=== PATIENT | male | born 1945 | race Caucasian/White ===

== ENCOUNTER 2016-04-06 13:25 | Inpatient (IN) ==
--- NOTE | 2016-04-06 13:34 | Emergency Department Note ---
Disposition Clinical Impression: ESRD (end stage renal disease), DM (diabetes mellitus), type 2, Hyperkalemia, Weakness, Anemia Disposition: Admitted As Inpatient Condition: Fair [facility] Care Provider[facility] - Forms: Work/School Release, ED Satisfaction Letter Time of Disposition: 15:11 General Adult HPI - General Chief complaint: ED General Medical Stated complaint: "Not feeling well" Elevated BP, Elevated K+ Time Seen by Provider: 04/06/16 13:32 Source: patient, EMS Mode of arrival: EMS Limitations: physical limitation Nursing Notes Reviewed: Yes Vital Signs Reviewed: Yes - History of Present Illness HPI Narrative: This is a 70-year-old male who came over from the [place] and states he just does not feel well. Patient has a generalized headache. Patient states he just feels weak and fatigued. Patient did not go to dialysis this morning due to feeling well. Patient denies any chest pain or shortness of breath. Patient denies any abdominal pain, vomiting, diarrhea, or measured fever. 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 - Related Data Home Medications Medication Instructions Recorded Confirmed CloNIDine HCl [Clonidine HCl] 0.1 mg PO TID 12/03/15 04/06/16 GlipiZIDE [Glipizide] 10 mg PO BID 12/03/15 04/06/16 SUMAtriptan Succinate [Imitrex] 100 mg PO DAILY PRN 12/11/15 04/06/16 Amlodipine Besylate 10 mg PO DAILY 03/11/16 04/06/16 Carboxymethylcellulose Sodium 1 drop BOTH EYES QID 03/11/16 04/06/16 [Refresh Celluvisc] Diazepam [Valium] 10 mg PO BID PRN 03/11/16 04/06/16 Folic Acid/Vit Bcomp,C [Renal-Claudette 0.8 mg PO DAILY 03/11/16 04/06/16 Tablet] Furosemide [Lasix] 40 mg PO BID 03/11/16 04/06/16 Gabapentin [Neurontin] 100 mg PO HS 03/11/16 04/06/16 Insulin NPH, HUMAN [HumuLIN N] 60 unit SQ QAM 03/11/16 04/06/16 Donepezil [Aricept] 10 mg PO HS 03/12/16 04/06/16 Gabapentin [Neurontin] 200 mg PO BID 03/12/16 04/06/16 Insulin NPH, HUMAN [HumuLIN N] 45 unit SQ QPM 03/12/16 04/06/16 Pregabalin [Lyrica] 150 mg PO BID 03/12/16 04/06/16 Simvastatin [Zocor] 20 mg PO DAILY 03/12/16 04/06/16 Previous Rx's Medication Instructions Recorded Aspirin 81 mg PO DAILY #30 tab.chew 03/13/16 Metoprolol [Lopressor] 100 mg PO BID #60 tablet 03/13/16 Renal Vitamin [Renal Caps Softgel] 1 mg PO DAILY capsule 03/13/16 Allergies Allergy/AdvReac Type Severity Reaction Status Date / Time gabapentin Allergy Rash Verified 04/06/16 13:34 simvastatin Allergy See Verified 04/06/16 13:34 Comments fentanyl AdvReac Vomiting Verified 04/06/16 13:34 hydrocortisone AdvReac Redness of Verified 04/06/16 13:34 Skin morphine AdvReac Vomiting Verified 04/06/16 13:34 All systems ED: reviewed and negative except as stated. Constitutional: Reports: weakness. Denies: fever, chills, weight change Eyes: Denies: eye pain, eye discharge, vision change ENT ED: Denies: ear pain, throat pain, dental pain, hearing loss, epistaxis, congestion, dysphagia Cardiovascular: Denies: chest pain, palpitations, dyspnea on exertion, edema, syncope Respiratory: Denies: cough, dyspnea, wheezes, hemoptysis, stridor Gastrointestinal: Denies: abdominal pain, nausea, vomiting, diarrhea, constipation, hematemesis, melena, hematochezia Genitourinary: Denies: urgency, dysuria, frequency, hematuria Musculoskeletal: Denies: back pain, neck pain, arthralgia, myalgia Integumentary: Denies: rash, abrasion, lesions Neurological: Reports: headache. Denies: numbness, paresthesias, confusion, abnormal gait, vertigo Psychiatric: Denies: anxiety, depression, suicidal thoughts, homicidal thoughts , auditory hallucinations, visual hallucinations Endocrine: Reports: fatigue Hematological/Lymphatic: Denies: easy bleeding, easy bruising Allergic/Immunologic: Denies: facial swelling, urticaria Past Medical History - Past Medical History Attestation: Yes The following information was validated with the patient. Source: patient Medical history: Reports: CHF, diabetes, dialysis, hypertension Surgical history: Reports: appendectomy, other Psychiatric history: Reports: PTSD - Social History Smoking Status: Never smoker Smokeless Tobacco Status: No Alcohol use: Reports: rarely Drug use: Reports: none Physical Exam - General Limitations: physical limitation General appearance: alert, in no apparent distress - Head Head exam: atraumatic, normocephalic, normal inspection - Eye Eye exam: Present: normal appearance, PERRL, EOMI - ENT ENT exam: normal exam, normal oropharynx, mucous membranes moist - Expanded ENT Exam External ear exam: Present: normal external inspection Mouth exam: Present: normal external inspection Teeth exam: Present: normal inspection Throat exam: Present: normal inspection - Neck Neck exam: Present: normal inspection, full ROM, trachea midline - Chest Chest inspection: Present: normal inspection, symmetric chest wall rise - Respiratory Respiratory exam: Present: other (rhonchi) - Cardiovascular Cardiovascular exam: Present: tachycardia, irregular rhythm, normal heart sounds - Abdominal Exam Abdominal exam: Present: soft, Non-Tender. Absent: tenderness, distention, guarding, rebound, rigidity - Extremities Exam Extremities exam: Present: full ROM. Absent: tenderness, pedal edema - Expanded Upper Extremity Exam Shoulder exam: Present: normal inspection, full ROM Arm exam: Present: normal inspection, full ROM Elbow exam: Present: normal inspection, full ROM Forearm/Wrist exam: Present: normal inspection, full ROM Hand exam: Present: normal inspection, full ROM Vascular exam: Normal: capillary refill, radial pulse - Expanded Lower Extremity Exam Hip/Pelvis exam: Present: normal inspection, full ROM Upper leg exam: Present: normal inspection, full ROM Lower leg exam: Present: other (above the knee amputation on the L) Neurovascular/Tendon exam: Absent: motor deficit, sensory deficit, tendon deficit - Back Exam Back exam: Present: normal inspection, full ROM. Absent: tenderness - Neurological Exam Neurological exam: Present: alert, oriented X3 - Expanded Neurological Exam Patient oriented to: Present: person, place, time Speech: Present: fluid speech Coma Scale Eye Opening: Spontaneous Coma Scale Motor Response: Obeys Commands Coma Scale Verbal Response: Oriented Coma Scale Total: 15 - Psychiatric Psychiatric exam: Present: normal affect, normal mood - Skin Skin exam: Present: warm, dry, intact, pallor Course - Consultations Consultation #1: I spoke with Dr. Corbin yu to consult and wants medical management at this time and he will do dialysis in the AM. Time: 15:12 Consultation #2: I spoke with Dr. Martin yu to admit. Time: 15:50 Vital Signs Temperature 97.8 F 04/06/16 13:28 Pulse Rate 117 04/06/16 13:28 Respiratory Rate 18 04/06/16 13:28 Blood Pressure 210/133 04/06/16 13:28 O2 Sat by Pulse Oximetry 89 L 04/06/16 13:28 Temperature 97.8 F 04/06/16 13:28 Pulse Rate 118 04/06/16 14:59 Respiratory Rate 18 04/06/16 15:47 Blood Pressure 212/100 04/06/16 14:59 O2 Sat by Pulse Oximetry 95 04/06/16 15:47 Oxygen Delivery Oxygen Delivery Nasal Cannula Medical Decision Making - Medical Records Medical records reviewed: Yes I reviewed the patient's medical records. - Lab Data Lab results reviewed: Yes I reviewed the patient's lab results. Result diagrams: 04/06/16 14:08 04/06/16 14:08 Lab Results 04/06/16 04/06/16 04/06/16 Range/Units 14:08 14:08 14:08 WBC 8.5 (4.3-11.1) K/mcL RBC 3.08 L (4.19-5.50) M/mcL Hgb 9.4 L (12.9-16.9) g/dL Hct 29.0 L (37.5-50.1) % MCV 94.2 (83.0-100.0) fL MCH 30.5 (28.0-33.3) pg MCHC 32.4 (31.6-35.5) g/dL RDW 13.0 (11.5-14.5) % Plt Count 272 (140-400) K/mcL MPV 9.9 (9.4-12.4) fL Immature Gran % 0.4 (0-4) % Seg Neutrophils % 68.3 % Lymphocytes % 21.9 % Monocytes % 7.5 % Eosinophils % 1.5 % Basophils % 0.4 % Neutrophils # 5.8 (1.6-8.9) K/mcL Lymphocytes # 1.9 (0.6-4.6) K/mcL Monocytes # 0.6 (0.0-1.3) K/mcL Eosinophils # 0.1 (0.0-0.6) K/mcL Basophils # 0.0 (0.0-0.2) K/mcL PT (9.4-12.1) Seconds INR APTT 35.4 (26.0-36.0) Seconds Sodium 138 (136-145) mEq/L Potassium 6.7 H* (3.5-4.5) mEq/L Chloride 99 (98-109) mEq/L Carbon Dioxide 19 (19-29) mEq/L BUN 95 H (8-26) mg/dL Creatinine 11.79 H (0.72-1.25) mg/dL Est GFR ( Amer) 5 L (> 60) Est GFR (Non-Af Amer) 4 L (> 60) BUN/Creatinine Ratio 8 (6-26) Glucose 80 (70-99) mg/dL Calculated Osmolality 314 H (280-300) Calcium 9.0 (8.6-10.8) mg/dL Total Bilirubin (0.2-1.2) mg/dL Direct Bilirubin (0.0-0.5) mg/dL Indirect Bilirubin (0.0-1.2) mg/dL AST (5-34) Units/L ALT (0-55) Units/L Alkaline Phosphatase (38-126) Units/L Troponin I (0-0.03) ng/mL B-Natriuretic Peptide (0-100) pg/mL Serum Total Protein (6.0-8.3) g/dL Albumin (3.5-5.0) g/dL Globulin (2.4-3.5) g/dL Albumin/Globulin Ratio (1.1-2.2) TSH (0.350-4.840) mcIU/mL 04/06/16 04/06/16 04/06/16 Range/Units 14:08 14:08 14:08 WBC (4.3-11.1) K/mcL RBC (4.19-5.50) M/mcL Hgb (12.9-16.9) g/dL Hct (37.5-50.1) % MCV (83.0-100.0) fL MCH (28.0-33.3) pg MCHC (31.6-35.5) g/dL RDW (11.5-14.5) % Plt Count (140-400) K/mcL MPV (9.4-12.4) fL Immature Gran % (0-4) % Seg Neutrophils % % Lymphocytes % % Monocytes % % Eosinophils % % Basophils % % Neutrophils # (1.6-8.9) K/mcL Lymphocytes # (0.6-4.6) K/mcL Monocytes # (0.0-1.3) K/mcL Eosinophils # (0.0-0.6) K/mcL Basophils # (0.0-0.2) K/mcL PT 13.8 H (9.4-12.1) Seconds INR 1.3 APTT (26.0-36.0) Seconds Sodium (136-145) mEq/L Potassium (3.5-4.5) mEq/L Chloride (98-109) mEq/L Carbon Dioxide (19-29) mEq/L BUN (8-26) mg/dL Creatinine (0.72-1.25) mg/dL Est GFR ( Amer) (> 60) Est GFR (Non-Af Amer) (> 60) BUN/Creatinine Ratio (6-26) Glucose (70-99) mg/dL Calculated Osmolality (280-300) Calcium (8.6-10.8) mg/dL Total Bilirubin 0.4 (0.2-1.2) mg/dL Direct Bilirubin 0.2 (0.0-0.5) mg/dL Indirect Bilirubin 0.2 (0.0-1.2) mg/dL AST 18 (5-34) Units/L ALT 12 (0-55) Units/L Alkaline Phosphatase 111 (38-126) Units/L Troponin I (0-0.03) ng/mL B-Natriuretic Peptide 827 H (0-100) pg/mL Serum Total Protein 6.9 (6.0-8.3) g/dL Albumin 2.4 L (3.5-5.0) g/dL Globulin 4.5 H (2.4-3.5) g/dL Albumin/Globulin Ratio 0.5 L (1.1-2.2) TSH 3.119 (0.350-4.840) mcIU/mL 04/06/16 Range/Units 14:08 WBC (4.3-11.1) K/mcL RBC (4.19-5.50) M/mcL Hgb (12.9-16.9) g/dL Hct (37.5-50.1) % MCV (83.0-100.0) fL MCH (28.0-33.3) pg MCHC (31.6-35.5) g/dL RDW (11.5-14.5) % Plt Count (140-400) K/mcL MPV (9.4-12.4) fL Immature Gran % (0-4) % Seg Neutrophils % % Lymphocytes % % Monocytes % % Eosinophils % % Basophils % % Neutrophils # (1.6-8.9) K/mcL Lymphocytes # (0.6-4.6) K/mcL Monocytes # (0.0-1.3) K/mcL Eosinophils # (0.0-0.6) K/mcL Basophils # (0.0-0.2) K/mcL PT (9.4-12.1) Seconds INR APTT (26.0-36.0) Seconds Sodium (136-145) mEq/L Potassium (3.5-4.5) mEq/L Chloride (98-109) mEq/L Carbon Dioxide (19-29) mEq/L BUN (8-26) mg/dL Creatinine (0.72-1.25) mg/dL Est GFR ( Amer) (> 60) Est GFR (Non-Af Amer) (> 60) BUN/Creatinine Ratio (6-26) Glucose (70-99) mg/dL Calculated Osmolality (280-300) Calcium (8.6-10.8) mg/dL Total Bilirubin (0.2-1.2) mg/dL Direct Bilirubin (0.0-0.5) mg/dL Indirect Bilirubin (0.0-1.2) mg/dL AST (5-34) Units/L ALT (0-55) Units/L Alkaline Phosphatase (38-126) Units/L Troponin I 0.05 H* (0-0.03) ng/mL B-Natriuretic Peptide (0-100) pg/mL Serum Total Protein (6.0-8.3) g/dL Albumin (3.5-5.0) g/dL Globulin (2.4-3.5) g/dL Albumin/Globulin Ratio (1.1-2.2) TSH (0.350-4.840) mcIU/mL - Radiology Data Radiology results reviewed: Yes I reviewed the patient's radiology results. - EKG Data EKG #1 EKG attestation: Yes I reviewed and interpreted this EKG. Rate: tachycardia (102) Rhythm: A.Fib [place]/QRS: normal When compared to previous EKG there are: no significant changes Interpretation: nonspecific ST-T wave changes
[2016-04-06 14:18] LABS: Basophils % 0.4 %; Eosinophils # 0.1 K/mcL (0.0-0.6); Eosinophils % 1.5 %; Hemoglobin 9.4 g/dL (12.9-16.9); Immature Granulocytes % 0.4 % (0-4); Lymphocytes # 1.9 K/mcL (0.6-4.6); Lymphocytes % 21.9 %; Mean Corpuscular HGB Conc 32.4 g/dL (31.6-35.5); Mean Corpuscular Hemoglobin 30.5 pg (28.0-33.3); Mean Corpuscular Volume 94.2 fL (83.0-100.0); Mean Platelet Volume 9.9 fL (9.4-12.4); Monocytes # 0.6 K/mcL (0.0-1.3); Monocytes % 7.5 %; Neutrophils # 5.8 K/mcL (1.6-8.9); Platelet Count 272 K/mcL (140-400); Red Blood Count 3.08 M/mcL (4.19-5.50); Segmented Neutrophils % 68.3 %
[2016-04-06 14:23] LABS: INR 1.3; Prothrombin Time 13.8 Seconds (9.4-12.1)
[2016-04-06 14:39] LABS: Albumin 2.4 g/dL (3.5-5.0); Albumin/Globulin Ratio 0.5 (1.1-2.2); Bilirubin,Direct 0.2 mg/dL (0.0-0.5); Bilirubin,Indirect 0.2 mg/dL (0.0-1.2); Bilirubin,Total 0.4 mg/dL (0.2-1.2); Globulin 4.5 g/dL (2.4-3.5); Total Protein 6.9 g/dL (6.0-8.3)
[2016-04-06 14:49] LABS: Potassium 6.7 mEq/L (3.5-4.5)
[2016-04-06 14:59] LABS: Thyroid Stimulating Hormone 3.119 mcIU/mL (0.350-4.840)
[2016-04-06] MEDS ORDERED: Insulin Human Regular 10 UNIT in 0.9 % Sodium Chloride 10 ML IV ONE (15:07)
[2016-04-06] MEDS ORDERED: Albuterol 2.5 MG/3 ML NEBULIZER IH ONE (15:07)
[2016-04-06] MEDS ORDERED: Sodium Bicarbonate 50 MEQ/50 ML VIAL IVP ONE (15:07)
[2016-04-06] MEDS ORDERED: Calcium Gluconate 1,000 MG in D5% in Water 100 ML IVPB ONE (15:07)
[2016-04-06] MEDS ORDERED: *HR* Dextrose 50 % in Water (Syg) 50 ML SYRINGE IVP ONE (15:09)
[2016-04-06] MEDS ORDERED: Lidocaine -MPF 1% 5 ML AMPUL INFILT ONE (15:57)
[2016-04-06] MEDS ORDERED: cloNIDine HCl 0.1 MG TABLET PO ONE (17:39)
[2016-04-06] MEDS ORDERED: Metoprolol 100 MG TABLET PO STA (17:39)
[2016-04-06] MEDS ORDERED: amLODIPine 5 MG TABLET PO STA (17:40)
[2016-04-06] MEDS ORDERED: Naloxone 0.4 MG/ML INJ IVP PRN (18:18)
[2016-04-06] MEDS ORDERED: Dextrose Gel 15 GM PO PRN ×2 (18:22)
[2016-04-06] MEDS ORDERED: D5% in Water 1,000 ML IV PRN (18:22)
[2016-04-06] MEDS ORDERED: *HR* Dextrose 50 % in Water (Syg) 50 ML SYRINGE IVP PRN (18:22)
--- NOTE | 2016-04-06 18:33 | Internal Med History&Physical ---
Date of Encounter: 04/06/16 Time of Encounter: 18:30 Assessment and Plan (1) Hyperkalemia Current visit: Yes Status: Acute -Likely secondary to missed HD session -patient received a dose of Kayxelate, Calcium gluconate, Insulin in the ER -Will monitor K level -HD in am -Hold lasix at this time (2) ESRD (end stage renal disease) Current visit: Yes Status: Acute -Patient is a known patient of Dr. Alaniz (consulted by the ER physician) -patient on HD MWF -Will get dialyzed in am -Dr. Alaniz aware of the patient (3) Uncontrolled hypertension Current visit: No Status: Acute -pt reports of not taking his BP meds today -will restart his home medications and closely monitor -added Hydralazine 10mg IV q6h PRN SBP>160 (4) Atrial fibrillation Current visit: Yes Status: Chronic -rate controlled at home with Metoprolol -Will restart home medications -continue to closely monitor -patient not a candidate for anticoagulation due to chronic illness and history of falls -Aspirin for anticoagulation as per primary fur feeder Qualifiers: Atrial fibrillation type: chronic Qualified Code(s): I48.2 - Chronic atrial fibrillation (5) DM (diabetes mellitus), type 2 Current visit: Yes Status: Chronic continue home insulin dosing hold oral antihyperglycemic agents at this time continue to monitor fingerstick and blood glucose started low dose sliding scale correctional insulin algorithm as needed Qualifiers: Diabetes mellitus complication status: with unspecified complications Diabetes mellitus terminal worker insulin use: with terminal worker use Qualified Code(s) : E11.8 - Type 2 diabetes mellitus with unspecified complications; Z79.4 - 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 (current) use of insulin (6) DVT prophylaxis Current visit: No Status: Acute heparin SQ (7) Elevated troponin Current visit: No Status: Acute No reported chest pain likely demand ischemia will trend serial tni (8) CHF (congestive heart failure) Current visit: No Status: Chronic not in acute exacerbation will continue home medications Qualifiers: Congestive heart failure type: unspecified congestive heart failure type Congestive heart failure chronicity: chronic Qualified Code(s): I50.9 - Heart failure, unspecified (9) Cancer of skin of left forearm Current visit: No Status: Chronic patient recently underwent skin grafting on his distal left hand and is due for a follow up in am will obtain wound care consult further management as outpatient with his primary international sales representative (10) Chronic anemia Current visit: No Status: Chronic (11) Morbid obesity with BMI of 40.0-44.9, adult Current visit: Yes Status: Chronic Internal Medicine - H&P: HPI Chief complaint: generalized weakness Admitted From: Home Plans for Post Hospital Care: Home History of present illness: Mr. Callejas is a 70 year old male with past medical history of end-stage renal disease on hemodialysis, diabetes, hypertension, atrial fibrillation, skin malignancy presents to the ER for evaluation of generalized weakness. Patient states he woke up feeling extremely weak and was unable to make it to his hemodialysis appointment due to the severe weakness and decided to come to the ER instead. He was a transfer from the [facility] to the ER for evaluation of generalized weakness, headache, and hyperkalemia. He was noted to be severely hypertensive and reported of not taking his home antihypertensive medications. In the ER he received kayexalate, calcium gluconate, and insulin therapy. At this time he is resting in bed with present at bedside. He states his headache has resolved, denies any chest pain, shortness of breath, palpitations , abdominal pain, nausea, vomiting, fever, or chills. ER contacted patient's primary admitting counselor Dr. Alaniz, patient will get dialyzed in the morning. Past Med Surg Social Fam HX - Past Medical History Medical history: CHF, diabetes, dialysis, hypertension Psychiatric history: PTSD - Past Surgical History Surgical History: appendectomy, other - Social History Smoking Status: Never smoker Smokeless Tobacco Status: No Alcohol use: rarely Drug use: none - Family History Mother Living Status: Father Living Status: Internal Medicine - H&P: Meds CloNIDine HCl [Clonidine HCl] 0.1 mg PO TID 12/03/15 [History] GlipiZIDE [Glipizide] 10 mg PO BID 12/03/15 [History] SUMAtriptan Succinate [Imitrex] 100 mg PO DAILY PRN 12/11/15 [History] Amlodipine Besylate 10 mg PO DAILY 03/11/16 [History] Carboxymethylcellulose Sodium [Refresh Celluvisc] 1 drop BOTH EYES QID 03/11/16 [History] Diazepam [Valium] 10 mg PO BID PRN 03/11/16 [History] Folic Acid/Vit Bcomp,C [Renal-Claudette Tablet] 0.8 mg PO DAILY 03/11/16 [History] Furosemide [Lasix] 40 mg PO BID 03/11/16 [History] Gabapentin [Neurontin] 100 mg PO HS 03/11/16 [History] Insulin NPH, HUMAN [HumuLIN N] 60 unit SQ QAM 03/11/16 [History] Donepezil [Aricept] 10 mg PO HS 03/12/16 [History] Gabapentin [Neurontin] 200 mg PO BID 03/12/16 [History] Insulin NPH, HUMAN [HumuLIN N] 45 unit SQ QPM 03/12/16 [History] Pregabalin [Lyrica] 150 mg PO BID 03/12/16 [History] Simvastatin [Zocor] 20 mg PO DAILY 03/12/16 [History] Aspirin 81 mg PO DAILY #30 tab.chew 03/13/16 [Rx] Metoprolol [Lopressor] 100 mg PO BID #60 tablet 03/13/16 [Rx] Renal Vitamin [Renal Caps Softgel] 1 mg PO DAILY capsule 03/13/16 [Rx] Allergies gabapentin Allergy (Verified 04/06/16 13:34) Rash simvastatin Allergy (Verified 04/06/16 13:34) See Comments patient states unsure, [facility] fentanyl Adverse Reaction (Verified 04/06/16 13:34) Vomiting hydrocortisone Adverse Reaction (Verified 04/06/16 13:34) Redness of Skin morphine Adverse Reaction (Verified 04/06/16 13:34) Vomiting All Systems PM: A 10-system review of systems was performed and is negative for pertinent findings except as documented above in the HPI. - Constitutional Constitutional: as per HPI - Constitutional Vitals: Temp Pulse Resp BP Pulse Ox 97.9 F 103 18 209/86 92 L 04/06/16 17:20 04/06/16 17:20 04/06/16 17:20 04/06/16 17:20 04/06/16 17:21 General appearance: Present: A&O X 3, morbidly obese, no acute distress, answers questions appropriately - Head Head exam: Present: atraumatic, normocephalic - Eye Eye exam: Present: normal appearance, conjuntiva pink, sclera anicteric - Respiratory Respiratory exam: Present: CTAB. Absent: respiratory distress, wheezes - Cardiovascular Cardiovascular exam: Present: RRR, +S1, +S2 - GI/Abdominal GI/Abdominal exam: Present: distended (obese), normal bowel sounds, soft. Absent: tenderness - Extremities Exam Extremities exam: Present: pedal edema (s/p left BKA), warm, radial pulses palpable and symetrical. Absent: calf tenderness - Neurological Exam Neurological exam: Present: alert, oriented X3, no focal deficits - Psychiatric Psychiatric exam: Present: normal affect, normal mood Internal Med - H&P Results - Labs CBC & Chem 7: 04/06/16 14:08 04/06/16 14:08
[2016-04-06] MEDS: Pregabalin 75 MG CAPSULE PO SCH (20:41)
[2016-04-06] MEDS: cloNIDine HCl 0.1 MG TABLET PO SCH (20:42)
[2016-04-06] MEDS: Metoprolol 100 MG TABLET PO SCH (20:42)
[2016-04-06] MEDS: Insulin LISPRO 300 UNITS/3 ML VIAL SQ SCH (20:43)
[2016-04-06] MEDS ORDERED: Gabapentin 100 MG CAPSULE PO SCH ×2 (21:00)
[2016-04-06 21:45] LABS: Calcium 8.6 mg/dL (8.6-10.8); Potassium 6.2 mEq/L (3.5-4.5)
[2016-04-07] MEDS: Pregabalin 75 MG CAPSULE PO SCH ×3 (01:31→18:17)
[2016-04-07] MEDS: diazePAM 5 MG TABLET PO PRN (01:32)
[2016-04-07] MEDS: Artificial Tears SOLN 15 ML BOTTLE BOTH EYES SCH ×6 (01:34→22:19)
[2016-04-07 05:13] LABS: Basophils % 0.4 %; Eosinophils # 0.1 K/mcL (0.0-0.6); Eosinophils % 1.3 %; Hematocrit 27.3 % (37.5-50.1); Hemoglobin 9.1 g/dL (12.9-16.9); Immature Granulocytes % 0.4 % (0-4); Lymphocytes # 1.9 K/mcL (0.6-4.6); Lymphocytes % 22.5 %; Mean Corpuscular HGB Conc 33.3 g/dL (31.6-35.5); Mean Corpuscular Hemoglobin 30.7 pg (28.0-33.3); Mean Corpuscular Volume 92.2 fL (83.0-100.0); Mean Platelet Volume 9.7 fL (9.4-12.4); Monocytes # 0.7 K/mcL (0.0-1.3); Monocytes % 7.9 %; Neutrophils # 5.7 K/mcL (1.6-8.9); Platelet Count 264 K/mcL (140-400); Red Blood Count 2.96 M/mcL (4.19-5.50); Segmented Neutrophils % 67.5 %
[2016-04-07 05:40] LABS: Calcium 8.4 mg/dL (8.6-10.8); Magnesium 1.9 mg/dL (1.6-2.6); Phosphorous 14.4 mg/dL (2.3-4.7)
[2016-04-07 05:45] LABS: Potassium 6.7 mEq/L (3.5-4.5)
[2016-04-07] MEDS: *HR* Heparin 5,000 UNIT/ML VIAL SQ SCH ×2 (06:15→17:35)
[2016-04-07] MEDS: Insulin LISPRO 300 UNITS/3 ML VIAL SQ SCH ×4 (07:51→21:34)
[2016-04-07] MEDS: SUMAtriptan succinate 50 MG TABLET PO PRN (07:59)
[2016-04-07] MEDS: cloNIDine HCl 0.1 MG TABLET PO SCH ×3 (08:00→21:37)
[2016-04-07] MEDS: Renal Vitamin 1 MG CAPSULE PO SCH (08:00)
[2016-04-07] MEDS: amLODIPine 5 MG TABLET PO SCH (08:00)
[2016-04-07] MEDS: Metoprolol 100 MG TABLET PO SCH ×2 (08:00→21:37)
[2016-04-07] MEDS: VIT BCOMP C PO SCH (08:00)
[2016-04-07] MEDS: FOLIC ACID PO SCH (08:00)
[2016-04-07] MEDS: Aspirin 81 MG TAB.CHEW PO SCH (08:00)
--- NOTE | 2016-04-07 08:08 | Nephrology Consult Note ---
Date of Encounter: 04/07/16 Time of Encounter: 08:05 Assessment and Plan (1) ESRD (end stage renal disease) Current Visit: Yes Status: Acute Patient has end-stage renal disease related to hypertension and diabetes. He has been noncompliant with dialysis attendance. Subsequently he has significant volume overload and hyperkalemia as well as generalized weakness and hyperphosphatemia. Patient will undergo dialysis today with a 2K bath and aggressive volume removal as tolerated. He will likely require additional ultrafiltration tomorrow. He will be started on his phosphorus binders. His antihypertensive medications have been resumed. Aranesp for his anemia. (2) Volume overload Current Visit: Yes Status: Acute Qualifiers: Hypervolemia type: unspecified Qualified Code(s): E87.70 - Fluid overload, unspecified (3) Hyperkalemia Current Visit: Yes Status: Acute (4) Weakness Current Visit: Yes Status: Acute (5) Hyperphosphatemia Current Visit: No Status: Acute History of Present Illness - History of Present Illness This is a 70-year-old male with end-stage renal disease related to hypertension. Patient receives dialysis every Wednesday and pectin. Patient was admitted to the hospital after presenting to the [place] with complaints of generalized weakness. Patient had only had 1 dialysis treatment in the past week. He is experiencing a lot of swelling in his lower extremities arms as well as genitals. He has not been taking his antihypertensive medications nor his phosphorus binders. Present with hyperkalemia and hyperphosphatemia. Patient denies any shortness of breath or chest pain. His main complaint is that of feeling weak. He says he has been too weak to attend dialysis sessions. Past Med Surg Social Fam HX - Past Medical History Medical history: CHF, diabetes, dialysis, hypertension Psychiatric history: PTSD - Past Surgical History Surgical History: appendectomy, other - Social History Smoking Status: Never smoker Smokeless Tobacco Status: No Alcohol use: rarely Drug use: none - Family History Mother Living Status: Father Living Status: Medications and Allergies CloNIDine HCl [Clonidine HCl] 0.1 mg PO TID 12/03/15 [History] GlipiZIDE [Glipizide] 10 mg PO BID 12/03/15 [History] SUMAtriptan Succinate [Imitrex] 100 mg PO DAILY PRN 12/11/15 [History] Amlodipine Besylate 10 mg PO DAILY 03/11/16 [History] Carboxymethylcellulose Sodium [Refresh Celluvisc] 1 drop BOTH EYES QID 03/11/16 [History] Diazepam [Valium] 10 mg PO BID PRN 03/11/16 [History] Folic Acid/Vit Bcomp,C [Renal-Claudette Tablet] 0.8 mg PO DAILY 03/11/16 [History] Furosemide [Lasix] 40 mg PO BID 03/11/16 [History] Gabapentin [Neurontin] 100 mg PO HS 03/11/16 [History] Insulin NPH, HUMAN [HumuLIN N] 60 unit SQ QAM 03/11/16 [History] Donepezil [Aricept] 10 mg PO HS 03/12/16 [History] Gabapentin [Neurontin] 200 mg PO BID 03/12/16 [History] Insulin NPH, HUMAN [HumuLIN N] 45 unit SQ QPM 03/12/16 [History] Pregabalin [Lyrica] 150 mg PO BID 03/12/16 [History] Simvastatin [Zocor] 20 mg PO DAILY 03/12/16 [History] Aspirin 81 mg PO DAILY #30 tab.chew 03/13/16 [Rx] Metoprolol [Lopressor] 100 mg PO BID #60 tablet 03/13/16 [Rx] Renal Vitamin [Renal Caps Softgel] 1 mg PO DAILY capsule 03/13/16 [Rx] Allergies gabapentin Allergy (Verified 04/06/16 13:34) Rash simvastatin Allergy (Verified 04/06/16 13:34) See Comments patient states unsure, [facility] fentanyl Adverse Reaction (Verified 04/06/16 13:34) Vomiting hydrocortisone Adverse Reaction (Verified 04/06/16 13:34) Redness of Skin morphine Adverse Reaction (Verified 04/06/16 13:34) Vomiting Review of Systems Constitutional: as per HPI, weakness, weight gain Eyes: bilateral: blurred vision (patient denies), diplopia (patient denies) Nose, mouth and throat: no dizziness, no headache(s) Cardiovascular: dyspnea on exertion, leg edema, orthopnea, pedal edema, no chest pain, no palpitations Respiratory: dyspnea on exertion, no cough, no dyspnea Gastrointestinal: no abdominal pain, no change in bowel habits Genitourinary Male: as per HPI Musculoskeletal: muscle weakness, no numbness Integumentary: changing lesions, skin pain Neurological: as per HPI, weakness Psychiatric: no depression, no difficulty concentrating Endocrine: as per HPI Hematologic/Lymphatic: no easy bruising, no lymphadenopathy Exam - Vital Signs Vital signs: Initial Vital Signs Temp Pulse Resp BP Pulse Ox 97.8 F 117 18 210/133 89 L 04/06/16 13:28 04/06/16 13:28 04/06/16 13:28 04/06/16 13:28 04/06/16 13:28 Vital Signs - Last 8 Hours Temp Pulse Resp BP Pulse Ox 04/07/16 07:48 97.8 F 96 18 196/20 93 L 04/07/16 06:05 98 F 95 20 178/102 94 L 04/07/16 05:01 97.7 F 94 18 189/103 94 L 04/07/16 03:33 98.2 F 96 18 201/108 92 L 04/07/16 02:16 98.2 F 100 18 185/115 92 L 04/07/16 01:25 98 F 98 18 188/116 95 04/07/16 00:26 97.6 F 102 18 180/96 96 Intake and Output 04/06/16 04/07/16 04/07/16 23:59 07:59 15:59 Intake Total 120.1 / 120.1 800 / 800 Output Total 0 / 0 100 / 100 Balance 120.1 / 120.1 700 / 700 Intake: IV Fluids 120.1 / 120.1 HumuLIN R 10 UNIT In 10.1 / 10.1 Normal Saline Flush 10 ML @ 1212 mls/hr IV ONCE ONE Rx#:[id number] Calcium Gluconate 1,000 110 / 110 MG In Dextrose 5% 100 ML @ 220 mls/hr IVPB ONCE ONE Rx#:[id number] Oral 0 / 0 800 / 800 Output: Urine 0 / 0 100 / 100 Other: Stool Size Copious Stool Consistency liquid Stool Color Brown # Bowel Movements 4 Weight 135.8 kg Blood Glucose* 130 98 - General Appearance Exam: Patient is alert and oriented. He is in no acute distress. Neck is supple. Carotids show no bruits. Lungs diminished breath sounds bilaterally. Heart regular rate and rhythm with a 2/6 systolic ejection murmur. Abdomen shows normal bowel sounds bruits masses, megaly or tenderness. Patient is status post left below-knee amputation. There is significant swelling of both lower extremities. There is scrotal edema. There is a functioning AV fistula in the left arm. Results - Lab Results 04/07/16 05:00 04/07/16 05:00 Most recent lab results Calcium 8.4 mg/dL (8.6-10.8) L 04/07/16 05:00 Phosphorus 14.4 mg/dL (2.3-4.7) H 04/07/16 05:00 Magnesium 1.9 mg/dL (1.6-2.6) 04/07/16 05:00 Consult Discharge Plan - Plan [facility]errals: [facility] [Primary Care Provider] -
[2016-04-07] MEDS ORDERED: 0.9 % Sodium Chloride 250 ML IV PRN (08:10)
[2016-04-07] MEDS ORDERED: Insulin NPH 100 UNIT/ML (x5UNIT) SQ SCH ×2 (09:00→18:00)
--- NOTE | 2016-04-07 10:01 | Internal Med Progress Note ---
<YousufLisa - Last Filed: 04/07/16 13:36> Date of Encounter: 04/07/16 Time of Encounter: 08:45 - Assessment and plan (1) Hyperkalemia Current Visit: Yes Status: Acute Assessment and plan: Likely secondary to missed HD session Received dose of Kayxelate, Calcim gluconate, and Insulin in ED Potassium 6.7 today Nephrology consulted Pt will have HD today Lasix held Continue to monitor (2) ESRD (end stage renal disease) Current Visit: Yes Status: Acute Assessment and plan: Known pt of Dr. Alaniz HD today, will continue to follow nephrology recommendations (3) Uncontrolled hypertension Current Visit: No Status: Acute Assessment and plan: Reports of noncompliance prior to admission to [facility] Will restart home medications Hydralazine 10mg IV Q6H prn systolic BP >160 (4) Atrial fibrillation Current Visit: Yes Status: Chronic Assessment and plan: Rate controlled with metoprolol Continue home medications Patient not a candidate for anticoagulation due to chronic illness and history of falls Aspirin for anticoagulation as per primary mastercam programmer Qualifiers: Atrial fibrillation type: chronic Qualified Code(s): I48.2 - Chronic atrial fibrillation (5) DM (diabetes mellitus), type 2 Current Visit: Yes Status: Chronic Assessment and plan: Continue home insulin dosing Hold oral antihyperglycemic agents for hospital stay Continue to monitor Start Low dose SSI as needed Qualifiers: Diabetes mellitus complication status: with unspecified complications Diabetes mellitus correction insulin use: with watermaster use Qualified Code(s) : E11.8 - Type 2 diabetes mellitus with unspecified complications; Z79.4 - extermination inspector (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) use of insulin (6) Elevated troponin Current Visit: No Status: Acute Assessment and plan: Pt denies having chest pain Troponins 0.05, 0.05, 0.05 (7) CHF (congestive heart failure) Current Visit: No Status: Chronic Assessment and plan: Continue home medications Qualifiers: Congestive heart failure type: unspecified congestive heart failure type Congestive heart failure chronicity: chronic Qualified Code(s): I50.9 - Heart failure, unspecified (8) Cancer of skin of left forearm Current Visit: No Status: Chronic Assessment and plan: Recent skin grafting of distal left hand Due for follow-up in am, wound care consult ordered Further management outpatient with primary journeyman power plant operator (9) Chronic anemia Current Visit: No Status: Chronic (10) Morbid obesity with BMI of 40.0-44.9, adult Current Visit: Yes Status: Chronic (11) DVT prophylaxis Current Visit: No Status: Acute - Subjective Interval history: Reports he is feeling the same as he was when admitted. He reports continuing to feel weak. He denies any chest pain, shortness of breath, abdominal pain, nausea, vomiting, fever, or chills. He was seen by nephrology and is going to have dialysis today. - Constitutional Vitals: Temp Pulse Resp BP Pulse Ox 97.8 F 96 18 176/93 93 L 04/07/16 09:20 04/07/16 07:48 04/07/16 09:20 04/07/16 09:20 04/07/16 07:48 General appearance: Present: A&O X 3, morbidly obese, no acute distress, answers questions appropriately - Head Head exam: Present: atraumatic, normal inspection, normocephalic - Eye Eye exam: Present: PERRL, conjuntiva pink, sclera anicteric - ENT ENT exam: Present: mucous membranes moist - Neck Neck exam general surgery: Present: supple, trachea midline - Respiratory Respiratory exam: Present: CTAB - Cardiovascular Cardiovascular exam: Present: RRR, +S1, +S2 - GI/Abdominal GI/Abdominal exam: Present: distended (obese), normal bowel sounds, soft. Absent: rebound, rigid, tenderness - Extremities Exam Extremities exam: Present: pedal edema (1+ edema in RLE, LLE s/p BKA), warm. Absent: cyanotic - Neurological Exam Neurological exam: Present: alert, CN II-XII intact, oriented X3, no focal deficits - Skin Skin exam: Present: dry, intact Internal Medicine: Result - Labs CBC & Chem 7: 04/07/16 05:00 04/07/16 05:00 Labs: Short CBC 04/07/16 Range/Units 05:00 WBC 8.4 (4.3-11.1) K/mcL Hgb 9.1 L (12.9-16.9) g/dL Hct 27.3 L (37.5-50.1) % Plt Count 264 (140-400) K/mcL Neutrophils # 5.7 (1.6-8.9) K/mcL BMP 04/06/16 04/07/16 21:10 05:00 Sodium 139 139 Potassium 6.2 H 6.7 H* Chloride 100 99 Carbon Dioxide 19 21 BUN 98 H 102 H Creatinine 12.13 H 12.46 H Glucose 124 H 108 H Calcium 8.6 8.4 L Cardiac Enzymes 04/07/16 04/07/16 Range/Units 01:30 05:00 Troponin I 0.05 H* 0.05 H* (0-0.03) ng/mL - ABG Interpretation ABG results: PT/INR, D-dimer PT 13.8 Seconds (9.4-12.1) H 04/06/16 14:08 Consult Discharge Plan - Plan [facility]errals: [facility] [Primary Care Provider] - <Remy Salazar - Last Filed: 04/07/16 19:06> Date of Encounter: 04/07/16 - Time Spent With Patient I examined this patient and my medical decision-making was reviewed with the Resident Physician. I agree with the documented findings, disposition and treatment plan as described except to the extent set forth below. Patient is a distress heart is regular regular rhythm S1-S2 with a 4/6 systolic ejection murmur. Lungs are clear. Abdomen is obese and soft. exam normal male genitalia largely edematous scrotum with no choice and no skin changes noted. Blood culture is positive for Staphylococcus. Plan for staph bacteremia and will start IV vancomycin. Obtain echocardiogram. Follow-up urine culture and sensitivities. The patient requires inpatient hospitalization for IV antibiotics and finalizing the cultures. For past medical history family history social history and review of systems please refer to the original H&P dictated yesterday at this institution. There are no changes and updates. - Constitutional Vitals: Temp Pulse Resp BP Pulse Ox 97.3 F L 106 18 158/91 91 L 04/07/16 16:54 04/07/16 16:54 04/07/16 16:54 04/07/16 16:54 04/07/16 16:54 Internal Medicine: Result - Labs CBC & Chem 7: 04/07/16 05:00 04/07/16 05:00 Labs: Short CBC 04/07/16 Range/Units 05:00 WBC 8.4 (4.3-11.1) K/mcL Hgb 9.1 L (12.9-16.9) g/dL Hct 27.3 L (37.5-50.1) % Plt Count 264 (140-400) K/mcL Neutrophils # 5.7 (1.6-8.9) K/mcL BMP 04/06/16 04/07/16 21:10 05:00 Sodium 139 139 Potassium 6.2 H 6.7 H* Chloride 100 99 Carbon Dioxide 19 21 BUN 98 H 102 H Creatinine 12.13 H 12.46 H Glucose 124 H 108 H Calcium 8.6 8.4 L Cardiac Enzymes 04/07/16 04/07/16 Range/Units 01:30 05:00 Troponin I 0.05 H* 0.05 H* (0-0.03) ng/mL - ABG Interpretation ABG results: PT/INR, D-dimer PT 13.8 Seconds (9.4-12.1) H 04/06/16 14:08
[2016-04-07] MEDS ORDERED: 0.9 % Sodium Chloride 2,000 ML ONE (10:13)
[2016-04-07] MEDS: Insulin NPH 100 UNIT/ML (x5UNIT) SQ SCH (11:08)
[2016-04-07] MEDS: *HR* OxyCODONE/APAP 5/325 TABLET PO PRN ×2 (11:09→22:23)
[2016-04-07 12:48] LABS: Acinetobacter baumannii by PCR Not Detected (Not Detect); Candida albicans by PCR Not Detected (Not Detect); Candida glabrata by PCR Not Detected (Not Detect); Candida krusei by PCR Not Detected (Not Detect); Candida parapsilosis by PCR Not Detected (Not Detect); Candida tropicalis by PCR Not Detected (Not Detect); Enterococcus by PCR Not Detected (Not Detect); Escherichia coli by PCR Not Detected (Not Detect); Klebsiella oxytoca by PCR Not Detected (Not Detect); Klebsiella pneumoniae by PCR Not Detected (Not Detect); Pseudomonas aeruginosa by PCR Not Detected (Not Detect); Serratia marcescens by PCR Not Detected (Not Detect); Staphylococcus aureus by PCR Not Detected (Not Detect); Streptococcus agalactiae(B)PCR Not Detected (Not Detect); Streptococcus by PCR Not Detected (Not Detect); Streptococcus pneumoniae PCR Not Detected (Not Detect); Streptococcus pyogenes (A) PCR Not Detected (Not Detect); mecA Methicillin-Resist Gene Not Detected (Not Detect)
--- NOTE | 2016-04-07 14:39 | Electrocardiograph Report ---
[facility] Test Date: 2016-04-06 Pat Name: Seng Callejas Department: [facility] Room: 2A42 Gender: M Cpr Ambulance Driver: Britany : 1945 Requested By: Alisha Garcia Order Number: [id number] Reading MD: Klaudia Franco Measurements Intervals [place] Rate: 102 P: [place]: 0 QRS: 5 QRSD: 100 T: 40 QT: 340 QTc: 398 Interpretive Statements ATRIAL FIBRILLATION WITH RAPID VENTRICULAR RESPONSE LOW QRS VOLTAGE IN EXTREMITY LEADS [QRS DEFLECTION < 0.5 mV IN LIMB LEADS] PATTERN CONSISTENT WITH PULMONARY DISEASE MINIMAL ST DEPRESSION [0.025+ mV ST DEPRESSION] INTERPRETATION BASED ON A DEFAULT AGE OF 40 YEARS Electronically Signed On 04-07-16 14:27:56 EST by Klaudia Franco
[2016-04-07] MEDS ORDERED: Vancomycin 2,000 MG in D5% in Water 250 ML IVPB ONE (17:00)
[2016-04-07] MEDS: Furosemide 40 MG TABLET PO SCH (17:35)
[2016-04-08] MEDS: diazePAM 5 MG TABLET PO PRN ×2 (00:46→20:15)
[2016-04-08] MEDS: *HR* Heparin 5,000 UNIT/ML VIAL SQ SCH ×2 (04:50→17:33)
[2016-04-08 06:45] LABS: Basophils % 0.3 %; Eosinophils # 0.1 K/mcL (0.0-0.6); Eosinophils % 1.2 %; Hematocrit 26.6 % (37.5-50.1); Hemoglobin 8.7 g/dL (12.9-16.9); Immature Granulocytes % 2.5 % (0-4); Lymphocytes # 1.5 K/mcL (0.6-4.6); Mean Corpuscular HGB Conc 32.7 g/dL (31.6-35.5); Mean Corpuscular Hemoglobin 29.8 pg (28.0-33.3); Mean Corpuscular Volume 91.1 fL (83.0-100.0); Mean Platelet Volume 10.1 fL (9.4-12.4); Monocytes # 0.6 K/mcL (0.0-1.3); Monocytes % 10.4 %; Neutrophils # 3.6 K/mcL (1.6-8.9); Platelet Count 225 K/mcL (140-400); Red Blood Count 2.92 M/mcL (4.19-5.50); Red Cell Distribution Width 13.1 % (11.5-14.5); Segmented Neutrophils % 60.6 %
[2016-04-08 07:01] LABS: Calcium 8.3 mg/dL (8.6-10.8)
[2016-04-08 07:04] LABS: Potassium 5.8 mEq/L (3.5-4.5)
[2016-04-08] MEDS ORDERED: 0.9 % Sodium Chloride 250 ML IV PRN (08:14)
--- NOTE | 2016-04-08 08:14 | Nephrology Progress Note ---
Date of Encounter: 04/08/16 Time of Encounter: 08:12 - Assessment and Plan (1) ESRD (end stage renal disease) Current Visit: Yes Status: Acute The patient will have additional dialysis today for volume removal as well as treatment of hyperkalemia and also for control of azotemia. Orders have been submitted. (2) Volume overload Current Visit: Yes Status: Acute Qualifiers: Hypervolemia type: unspecified Qualified Code(s): E87.70 - Fluid overload, unspecified (3) Hyperkalemia Current Visit: Yes Status: Acute (4) Weakness Current Visit: Yes Status: Acute (5) Hyperphosphatemia Current Visit: No Status: Acute Subjective Interval history: Patient is sleeping. He is somewhat difficult to arouse. The patient's reports that the patient received Valium and a sleeping pill together at about 1 :00 this morning. Patient had dialysis yesterday. He is going to have additional dialysis today. This we done both for volume removal and control of potassium and azotemia. Objective - Vital Signs Vital signs: Vital Signs Temp Pulse Resp BP Pulse Ox 04/08/16 03:51 97.6 F 106 18 156/89 94 L 04/07/16 22:13 91 L 04/07/16 21:30 98.3 F 98 16 164/93 96 Intake and Output 04/07/16 04/08/16 04/08/16 23:59 07:59 15:59 Other: Weight 128.9 kg Blood Glucose* 86 Patient Weight 04/08/16 23:59 Weight 128.9 kg - General Appearance Exam: The patient is sleeping. He awakens and then drifts back off to sleep. Lungs managed breath sounds otherwise clear heart regular rate and rhythm. Abdomen is nontender. Patient is status post left BKA. He has bilateral lower extremity swelling. Scrotal edema is still present although possibly a bit better than yesterday. - Lab 04/08/16 06:33 04/08/16 06:33 Most recent lab results Calcium 8.3 mg/dL (8.6-10.8) L 04/08/16 06:33 Phosphorus 14.4 mg/dL (2.3-4.7) H 04/07/16 05:00 Magnesium 1.9 mg/dL (1.6-2.6) 04/07/16 05:00 Consult Discharge Plan - Plan [facility]errals: [facility] [Primary Care Provider] -
[2016-04-08] MEDS: Insulin LISPRO 300 UNITS/3 ML VIAL SQ SCH ×4 (08:35→21:01)
[2016-04-08] MEDS: Renal Vitamin 1 MG CAPSULE PO SCH (08:58)
[2016-04-08] MEDS: Insulin NPH 100 UNIT/ML (x5UNIT) SQ SCH (08:59)
[2016-04-08] MEDS: Aspirin 81 MG TAB.CHEW PO SCH (08:59)
[2016-04-08] MEDS: Artificial Tears SOLN 15 ML BOTTLE BOTH EYES SCH ×4 (08:59→20:15)
[2016-04-08] MEDS: VIT BCOMP C PO SCH (08:59)
[2016-04-08] MEDS: FOLIC ACID PO SCH (08:59)
[2016-04-08] MEDS: Furosemide 40 MG TABLET PO SCH ×2 (08:59→17:33)
[2016-04-08] MEDS: *HR* OxyCODONE/APAP 5/325 TABLET PO PRN ×2 (09:00→15:15)
[2016-04-08] MEDS: SUMAtriptan succinate 50 MG TABLET PO PRN ×2 (09:01→15:15)
--- NOTE | 2016-04-08 10:42 | Internal Med Progress Note ---
<YousufLisa Snyderll - Last Filed: 04/08/16 15:05> Date of Encounter: 04/08/16 Time of Encounter: 10:00 - Assessment and plan (1) Hyperkalemia Current Visit: Yes Status: Acute Assessment and plan: Likely secondary to missed HD session Received dose of Kayxelate, Calcim gluconate, and Insulin in ED Potassium 5.8 today Pt will have HD again today Lasix held Continue to monitor (2) ESRD (end stage renal disease) Current Visit: Yes Status: Acute Assessment and plan: Known pt of Dr. 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 Qualifiers: Atrial fibrillation type: chronic Qualified Code(s): I48.2 - Chronic atrial fibrillation (5) DM (diabetes mellitus), type 2 Current Visit: Yes Status: Chronic Assessment and plan: Due to episode of hypoglycemia, home dose insulin was decreased by half Currently on low dose SSI Hold oral antihyperglycemic agents for hospital stay Continue to monitor Qualifiers: Diabetes mellitus complication status: with unspecified complications Diabetes mellitus half-way insulin use: with continuous churn buttermaker use Qualified Code(s) : E11.8 - Type 2 diabetes mellitus with unspecified complications; Z79.4 - continuous churn buttermaker (current) use of insulin (6) Elevated troponin Current Visit: No Status: Acute Assessment and plan: Pt denies having chest pain Troponins 0.05, 0.05, 0.05 (7) CHF (congestive heart failure) Current Visit: No Status: Chronic Assessment and plan: Continue home medications Qualifiers: Congestive heart failure type: unspecified congestive heart failure type Congestive heart failure chronicity: chronic Qualified Code(s): I50.9 - Heart failure, unspecified (8) Cancer of skin of left forearm Current Visit: No Status: Chronic Assessment and plan: Recent skin grafting of distal left hand Due for follow-up in am, wound care consult ordered Further management outpatient with primary interpreter (9) Chronic anemia Current Visit: No Status: Chronic (10) Morbid obesity with BMI of 40.0-44.9, adult Current Visit: Yes Status: Chronic (11) DVT prophylaxis Current Visit: No Status: Acute - Subjective Interval history: Pt sleeping this morning. He admits to some tenderness in the abdomen on palpation. He denies any chest pain, shortness of breath, nausea, vomiting, fever, or chills. He will receive dialysis again today. - Constitutional Vitals: Temp Pulse Resp BP Pulse Ox 97.3 F L 91 16 155/99 96 04/08/16 08:19 04/08/16 08:19 04/08/16 08:19 04/08/16 08:19 04/08/16 08:19 General appearance: Present: A&O X 3, morbidly obese, no acute distress, answers questions appropriately - Head Head exam: Present: atraumatic, normal inspection, normocephalic - Eye Eye exam: Present: PERRL, conjuntiva pink, sclera anicteric - ENT ENT exam: Present: mucous membranes moist - Neck Neck exam general surgery: Present: supple, trachea midline - Respiratory Respiratory exam: Present: CTAB. Absent: accessory muscle use - Cardiovascular Cardiovascular exam: Present: RRR, +S1, +S2 - GI/Abdominal GI/Abdominal exam: Present: distended (obese), tenderness (diffusely TTP). Absent: guarding, rebound - Extremities Exam Extremities exam: Present: pedal edema (1+ edema RLE, LLE s/p BKA) - Neurological Exam Neurological exam: Present: alert, CN II-XII intact, oriented X3, no focal deficits - Skin Skin exam: Present: dry, intact Internal Medicine: Result - Labs CBC & Chem 7: 04/08/16 06:33 04/08/16 06:33 Labs: Short CBC 04/08/16 Range/Units 06:33 WBC 6.0 (4.3-11.1) K/mcL Hgb 8.7 L (12.9-16.9) g/dL Hct 26.6 L (37.5-50.1) % Plt Count 225 (140-400) K/mcL Neutrophils # 3.6 (1.6-8.9) K/mcL BMP 04/08/16 06:33 Sodium 141 Potassium 5.8 H Chloride 103 Carbon Dioxide 19 BUN 77 H Creatinine 9.83 H Glucose 58 L Calcium 8.3 L - ABG Interpretation ABG results: PT/INR, D-dimer PT 13.8 Seconds (9.4-12.1) H 04/06/16 14:08 Consult Discharge Plan - Plan [facility]errals: [facility] [Primary Care Provider] - <Remy Salazar - Last Filed: 04/08/16 18:04> Date of Encounter: 04/08/16 - Constitutional Vitals: Temp Pulse Resp BP Pulse Ox 97.5 F L 95 16 201/103 93 L 04/08/16 15:37 04/08/16 15:37 04/08/16 15:37 04/08/16 15:37 04/08/16 15:37 Internal Medicine: Result - Labs CBC & Chem 7: 04/08/16 06:33 04/08/16 06:33 Labs: Short CBC 04/08/16 Range/Units 06:33 WBC 6.0 (4.3-11.1) K/mcL Hgb 8.7 L (12.9-16.9) g/dL Hct 26.6 L (37.5-50.1) % Plt Count 225 (140-400) K/mcL Neutrophils # 3.6 (1.6-8.9) K/mcL BMP 04/08/16 06:33 Sodium 141 Potassium 5.8 H Chloride 103 Carbon Dioxide 19 BUN 77 H Creatinine 9.83 H Glucose 58 L Calcium 8.3 L - ABG Interpretation ABG results: PT/INR, D-dimer PT 13.8 Seconds (9.4-12.1) H 04/06/16 14:08 - Attending Attestation I examined this patient and my medical decision-making was reviewed with the Resident Physician. I agree with the documented findings, disposition and treatment plan as described except to the extent set forth below. Continue Lasix, dialysis per nephrology. Continue with vancomycin dosing per pharmacy. Follow-up blood culture. Check surveillance blood cultures today. He is at high risk due to IV vancomycin requiring close blood level monitoring for toxicity.
[2016-04-08] MEDS: cloNIDine HCl 0.1 MG TABLET PO SCH ×3 (14:09→20:15)
[2016-04-08] MEDS ORDERED: Vancomycin 2,000 MG in D5% in Water 500 ML IVPB ONE (14:53)
[2016-04-08] MEDS ORDERED: Insulin NPH 100 UNIT/ML (x5UNIT) SQ SCH ×2 (14:58→14:59)
[2016-04-08] MEDS: Metoprolol 100 MG TABLET PO SCH ×2 (15:15→20:15)
[2016-04-08] MEDS: amLODIPine 5 MG TABLET PO SCH (15:15)
[2016-04-08] MEDS: Pregabalin 75 MG CAPSULE PO SCH (17:34)
[2016-04-08] MEDS ORDERED: 0.9 % Sodium Chloride 2,000 ML ONE (18:49)
[2016-04-09] MEDS: *HR* OxyCODONE/APAP 5/325 TABLET PO PRN ×2 (02:49→12:33)
[2016-04-09] MEDS: *HR* Heparin 5,000 UNIT/ML VIAL SQ SCH (05:59)
[2016-04-09 06:01] LABS: Basophils % 0.4 %; Eosinophils # 0.2 K/mcL (0.0-0.6); Eosinophils % 4.4 %; Hematocrit 27.8 % (37.5-50.1); Hemoglobin 8.7 g/dL (12.9-16.9); Immature Granulocytes % 0.7 % (0-4); Lymphocytes % 37.1 %; Mean Corpuscular HGB Conc 31.3 g/dL (31.6-35.5); Mean Corpuscular Hemoglobin 30.2 pg (28.0-33.3); Mean Corpuscular Volume 96.5 fL (83.0-100.0); Mean Platelet Volume 10.4 fL (9.4-12.4); Monocytes # 0.5 K/mcL (0.0-1.3); Monocytes % 9.8 %; Neutrophils # 2.6 K/mcL (1.6-8.9); Platelet Count 231 K/mcL (140-400); Red Blood Count 2.88 M/mcL (4.19-5.50); Red Cell Distribution Width 13.2 % (11.5-14.5); Segmented Neutrophils % 47.6 %
[2016-04-09 06:24] LABS: Calcium 8.1 mg/dL (8.6-10.8); Potassium 4.9 mEq/L (3.5-4.5)
[2016-04-09] MEDS: Aspirin 81 MG TAB.CHEW PO SCH (09:40)
[2016-04-09] MEDS: Metoprolol 100 MG TABLET PO SCH (09:40)
[2016-04-09] MEDS: Renal Vitamin 1 MG CAPSULE PO SCH (09:40)
[2016-04-09] MEDS: cloNIDine HCl 0.1 MG TABLET PO SCH ×2 (09:41→14:23)
[2016-04-09] MEDS: Furosemide 40 MG TABLET PO SCH (09:41)
[2016-04-09] MEDS: amLODIPine 5 MG TABLET PO SCH (09:41)
[2016-04-09] MEDS: Insulin LISPRO 300 UNITS/3 ML VIAL SQ SCH ×2 (09:41→14:00)
[2016-04-09] MEDS: Artificial Tears SOLN 15 ML BOTTLE BOTH EYES SCH ×2 (09:41→14:23)
[2016-04-09] MEDS: VIT BCOMP C PO SCH (09:42)
[2016-04-09] MEDS: FOLIC ACID PO SCH (09:42)
[2016-04-09] MEDS ORDERED: 0.9 % Sodium Chloride 250 ML IV PRN (09:45)
--- NOTE | 2016-04-09 10:01 | Nephrology Progress Note ---
Date of Encounter: 04/09/16 Time of Encounter: 09:35 - Assessment and Plan (1) ESRD (end stage renal disease) Current Visit: Yes Status: Acute Will Ultrafiltrate today for fluid removal. Orders given. If discharged HD tomorrow in [place]. Subjective Interval history: awake, watching tv, present in room. Wants to go home today. Staes feeling better. Objective - Vital Signs Vital signs: Vital Signs Temp Pulse Resp BP Pulse Ox 04/09/16 07:14 97.5 F L 107 18 113/78 98 04/09/16 05:54 97.6 F 107 20 120/72 97 04/09/16 01:44 98 F 95 18 105/62 97 04/08/16 20:56 97.6 F 105 20 148/84 92 L 04/08/16 15:37 97.5 F L 95 16 201/103 93 L 04/08/16 13:45 97.3 F L 16 175/94 04/08/16 13:40 162/98 04/08/16 13:25 176/96 04/08/16 13:10 186/93 04/08/16 12:55 164/103 04/08/16 12:40 177/96 04/08/16 12:25 148/106 04/08/16 12:10 163/106 04/08/16 11:55 143/70 04/08/16 11:40 158/102 04/08/16 11:25 183/97 04/08/16 11:10 160/109 04/08/16 10:55 161/103 04/08/16 10:40 181/105 04/08/16 10:25 97.3 F L 16 185/109 Intake and Output 04/08/16 04/09/16 04/09/16 23:59 07:59 15:59 Intake Total 240 / 240 Output Total 0 / 0 Balance 240 / 240 Intake: Oral 240 / 240 Output: Urine 0 / 0 Other: Meal snack- ham sandwhich Percent of Meal Consumed 100% Weight 128.6 kg Blood Glucose* 198 138 Patient Weight 04/09/16 23:59 Weight 128.6 kg - General Appearance General appearance: Present: well-developed, well-nourished, appears started age EENT: Present: mucous membranes moist Neck: Present: no JVD Respiratory: Present: clear Cardiology: Present: regular rate, regular rhythm Additional Comments: mild pitting edema RLE, left BKA Gastrointestinal: Present: normoactive bowel sounds, no tenderness, no guarding Integumentary: Present: warm and dry Neurologic: Present: alert and oriented x3 Psychiatric: Present: mood/affect appropriate, cooperative - Lab 04/09/16 05:44 04/09/16 05:44 Most recent lab results Calcium 8.1 mg/dL (8.6-10.8) L 04/09/16 05:44 Phosphorus 14.4 mg/dL (2.3-4.7) H 04/07/16 05:00 Magnesium 1.9 mg/dL (1.6-2.6) 04/07/16 05:00 Consult Discharge Plan - Plan [facility]errals: [facility] [Primary Care Provider] -
--- NOTE | 2016-04-09 11:18 | Discharge Summary ---
<YousufLisa Snyderll - Last Filed: 04/09/16 14:36> Date of Encounter: 04/09/16 Time of Encounter: 09:00 - Discharge Diagnosis (1) Hyperkalemia Priority: Primary Status: Acute (2) ESRD (end stage renal disease) Priority: Primary Status: Acute (3) Uncontrolled hypertension Priority: Secondary Status: Acute (4) Atrial fibrillation Priority: Secondary Status: Chronic Qualifiers: Atrial fibrillation type: chronic Qualified Code(s): I48.2 - Chronic atrial fibrillation (5) DM (diabetes mellitus), type 2 Priority: Secondary Status: Chronic Qualifiers: Diabetes mellitus complication status: with unspecified complications Diabetes mellitus longterm insulin use: with terminal manager use Qualified Code(s) : E11.8 - Type 2 diabetes mellitus with unspecified complications; Z79.4 - terminal manager (current) use of insulin (6) Elevated troponin Priority: Secondary Status: Acute (7) CHF (congestive heart failure) Priority: Secondary Status: Chronic Qualifiers: Congestive heart failure type: unspecified congestive heart failure type Congestive heart failure chronicity: chronic Qualified Code(s): I50.9 - Heart failure, unspecified (8) Cancer of skin of left forearm Priority: Secondary Status: Chronic (9) Chronic anemia Priority: Secondary Status: Chronic (10) Morbid obesity with BMI of 40.0-44.9, adult Priority: Secondary Status: Chronic - Discharge Medications Home Medications: CloNIDine HCl [Clonidine HCl] 0.1 mg PO TID 12/03/15 [History] GlipiZIDE [Glipizide] 10 mg PO BID 12/03/15 [History] SUMAtriptan Succinate [Imitrex] 100 mg PO DAILY PRN 12/11/15 [History] Amlodipine Besylate 10 mg PO DAILY 03/11/16 [History] Carboxymethylcellulose Sodium [Refresh Celluvisc] 1 drop BOTH EYES QID 03/11/16 [History] Diazepam [Valium] 10 mg PO BID PRN 03/11/16 [History] Folic Acid/Vit Bcomp,C [Renal-Claudette Tablet] 0.8 mg PO DAILY 03/11/16 [History] Furosemide [Lasix] 40 mg PO BID 03/11/16 [History] Gabapentin [Neurontin] 100 mg PO HS 03/11/16 [History] Insulin NPH, HUMAN [HumuLIN N] 60 unit SQ QAM 03/11/16 [History] Donepezil [Aricept] 10 mg PO HS 03/12/16 [History] Gabapentin [Neurontin] 200 mg PO BID 03/12/16 [History] Insulin NPH, HUMAN [HumuLIN N] 45 unit SQ QPM 03/12/16 [History] Pregabalin [Lyrica] 150 mg PO BID 03/12/16 [History] Simvastatin [Zocor] 20 mg PO DAILY 03/12/16 [History] Aspirin 81 mg PO DAILY #30 tab.chew 03/13/16 [Rx] Metoprolol [Lopressor] 100 mg PO BID #60 tablet 03/13/16 [Rx] Renal Vitamin [Renal Caps Softgel] 1 mg PO DAILY capsule 03/13/16 [Rx] Allergies/Adverse Reactions: Allergies gabapentin Allergy (Verified 04/06/16 13:34) Rash simvastatin Allergy (Verified 04/06/16 13:34) See Comments patient states unsure, [facility] fentanyl Adverse Reaction (Verified 04/06/16 13:34) Vomiting hydrocortisone Adverse Reaction (Verified 04/06/16 13:34) Redness of Skin morphine Adverse Reaction (Verified 04/06/16 13:34) Vomiting Date of admission: 04/07/16 19:07 Primary care physician: [facility]CP [facility] Consults: 04/08/16 08:15 Consult to Dialysis [CONS] ONCE 04/09/16 09:45 Consult to Dialysis [CONS] ONCE 04/10/16 09:45 Consult to Dialysis [CONS] ONCE - Patient Status Disposition: Home, Self-Care Condition: Good Functional capacity at discharge: wheelchair bound (s/p LLE BKA) Overall status at discharge: patient is progressing back to baseline - Discharge Instructions Instructions: Hyperkalemia (GEN) Follow Up With: Ariel Alaniz DO [Non-Partnered Physician] - [facility] [Primary Care Provider] - (Follow-up on hospital admission, initial blood cultures and surveillance cultures drawn while at [facility]) Additional Instructions: Follow-up with PCP in one week, follow blood cultures and surveillance cultures drawn during admission Hemodialysis tomorrow in [place], follow-up with Nephrology. - Diet and Activity Activity: increase activity as tolerated Diet: diabetic diet, other (Renal diet) Hospital course: Mr. Callejas is a 70 year old male who presented to [facility] after missing his hemodialysis appointment and feeling generalized weakness. He was noted to be severely hypertensive in the ED after reportedly not taking his HTN medication in that day. He was also found to be hyperkalemic with a K of 6.7. Pt was given kayexalate, calcium gluconate, and insulin in the ED. Dr. Alaniz was consulted. Pt received dialysis twice and ultrafiltration today. His K today was 4.9 and creatinine improved from 12.13 on admission to 7.52 today. Nephrology has signed off and plan is for pt to have hemodialysis tomorrow in [place]. Blood cultures were drawn in the ED with one of the two growing gram positive cocci. Pt was placed on Vancomycin with pharmacy to dose. Cultures are pending, however, pt has continued to be asymptomatic, afebrile with no leukocytosis, during hospital stay. Pt had an episode of hypoglycemia while at [facility] and his home insulin was therefore decreased by half at that time, however this will returned to his home dose on discharge. Pt to follow-up with PCP in one week and have HD tomorrow in [place]. - Time Spent with Patient Total time spent providing and/or coordinating discharge services: Greater than 30 minutes - Constitutional Vitals: Temp Pulse Resp BP Pulse Ox 97.5 F L 107 18 113/78 98 04/09/16 07:14 04/09/16 07:14 04/09/16 07:14 04/09/16 07:14 04/09/16 08:54 General appearance: Present: A&O X 3, morbidly obese, no acute distress, answers questions appropriately - Head Head exam: Present: atraumatic, normal inspection, normocephalic - Eye Eye exam: Present: PERRL, conjuntiva pink, sclera anicteric - ENT ENT exam: Present: mucous membranes moist - Neck Neck exam general surgery: Present: supple, trachea midline - Respiratory Respiratory exam: Present: CTAB. Absent: rales, rhonchi, wheezes - Cardiovascular Cardiovascular exam: Present: RRR, +S1, +S2 - GI/Abdominal GI/Abdominal exam: Present: normal bowel sounds, soft. Absent: rebound, tenderness - Extremities Exam Extremities exam: Present: pedal edema (1+ RLE, LLE s/p BKA), warm. Absent: cyanotic - Neurological Exam Neurological exam: Present: alert, CN II-XII intact, oriented X3, no focal deficits - Skin Skin exam: Present: dry, intact <Remy Salazar - Last Filed: 04/09/16 18:06> Date of Encounter: 04/09/16 Date of admission: 04/07/16 19:07 Primary care physician: [facility]CP [facility] Consults: 04/08/16 08:15 Consult to Dialysis [CONS] ONCE 04/09/16 09:45 Consult to Dialysis [CONS] ONCE Hospital course: Mr. Callejas is a 70 year old male - Time Spent with Patient Total time spent providing and/or coordinating discharge services: - Constitutional Vitals: Temp Pulse Resp BP Pulse Ox 97.3 F L 107 20 126/70 98 04/09/16 13:19 04/09/16 07:14 04/09/16 13:19 04/09/16 13:19 04/09/16 08:54 - Attending Attestation I examined this patient and my medical decision-making was reviewed with the Resident Physician. I agree with the documented findings, disposition and treatment plan as described except to the extent set forth below. Patient presented for generalized malaise status post missed hemodialysis. He was admitted to the hospital and has had hemodialysis daily for the last 2 days. Incidentally he had a blood culture out of 2 growing gram-positive cocci. Given that patient had no signs of infection I highly suspect that this is a contamination. Currently the final cultures are PENDING. A surveillance culture was also sent and is currently pending. Patient will follow-up with his primary care physician, and I recommend following up cultures. I will hold off on antibiotic treatment unless the cultures confirm true bacteremia.
[2016-04-09] MEDS ORDERED: Petrolatum, White OINT.PACK TP PRN (12:03)
[2016-04-09] MEDS ORDERED: 0.9 % Sodium Chloride 2,000 ML ONE (12:06)
[2016-04-09 13:22] VITALS: BP 126/70
[2016-04-09] MEDS ORDERED: Aminoglycoside Consult 1 EACH MC ONE (15:23)
== END 2016-04-09 15:24 | disposition home or self-care (01) | DRG 640 ==
LOC: EMEROO 13:25 → 2ANU 13:25 → SUATTDRO 15:57 → 2ANU 17:02
PROVIDERS: ADMIT Internal Medicine; ATTEND Internal Medicine